=== PATIENT | male | born 1990 | race Caucasian/White ===

== ENCOUNTER 2019-10-13 19:18 | Inpatient (IN) | payer OTHER ==
--- NOTE | 2019-10-13 19:37 | ED ---
General Adult HPI - General Chief complaint: Psychiatric Symptoms Stated complaint: Mental Health Time Seen by Provider: 10/13/19 19:26 Source: patient, EMS Mode of arrival: EMS Limitations: no limitations - History of Present Illness Initial comments: Dictation was produced using [employer] dictation software. please excuse any grammatical, word or spelling errors. This patient was cared for during a federal and state declared state of emergency secondary to Covid 19 Chief Complaint: 29-year-old male brought in by EMS after being found wandering the [place]. History of Present Illness: 29-year-old male he says that he has a history of anxiety and depression. Patient was allegedly missing for approximately 2 days. He was found on someone's property near the [facility]. Allegedly there were people who were having target practice with there are firearms. Patient was found standing in front of the targets and encouraging people to shoot their guns saying that he "trusts them." Patient denies any medical history. Patient is a poor historian. He denies any homicidal or suicidal thoughts. He states that he was in the [facility] and oriented to "earn his wings for the ." As a psychiatric history. Does not take any medications. The ROS documented in this emergency department record has been reviewed and confirmed by me. Those systems with pertinent positive or negative responses have been documented in the HPI. All other systems are other negative and/or noncontributory. PHYSICAL EXAM: General Impression: Alert and oriented x3, not in acute distress, disheveled HEENT: Normocephalic atraumatic, extra-ocular movements intact, pupils equal and reactive to light bilaterally, mucous membranes moist. Cardiovascular: Heart regular rate and rhythm Chest: Able to complete full sentences, no retractions, no tachypnea Abdomen: abdomen soft, non-tender, non-distended, no organomegaly Musculoskeletal: Pulses present and equal in all extremities, no peripheral edema Motor: no focal deficits noted Neurological: CN II-XII grossly intact, no focal motor or sensory deficits noted Skin: Intact with no visualized rashes Psych: Paranoid, flat affect, avoids eye contact ED course: 29 yo Male presents with acute psychosis. Vital signs upon arrival are within acceptable limits. - Related Data Allergies Allergy/AdvReac Type Severity Reaction Status Date / Time clarithromycin [From Biaxin] AdvReac Rash/Hives Verified 10/13/19 23:09 loracarbef [From Lorabid] AdvReac Rash/Hives Verified 10/13/19 23:09 Review of Systems ROS Statement: Those systems with pertinent positive or pertinent negative responses have been documented in the HPI. ROS Other: All systems not noted in ROS Statement are negative. Past Medical History Past Medical History: No Reported History History of Any Multi-Drug Resistant Organisms: None Reported Additional Past Surgical History / Comment(s): hernia repair when he was 5 Past Psychological History: Depression Smoking Status: Never smoker Past Alcohol Use History: None Reported Past Drug Use History: None Reported - Past Family History family Family Medical History: Unable to Obtain General Exam Limitations: no limitations Course Vital Signs 10/13/19 19:23 Temperature 97 F L Pulse Rate 100 Respiratory 18 Rate Blood Pressure 152/74 O2 Sat by Pulse 98 Oximetry Medical Decision Making - Medical Decision Making EPS nurse requested computed tomography scan of the brain. Computed tomography scan was negative. Patient care was signed out to oncoming physician. Patient was evaluated by EPS recommended inpatient admission to mental health unit. - Lab Data Result diagrams: 10/14/19 08:40 10/14/19 08:40 Lab Results 10/13/19 Range/Units 19:40 Urine Opiates Screen Not Detected (NotDetected) Ur Oxycodone Screen Not Detected (NotDetected) Urine Methadone Screen Not Detected (NotDetected) Ur Propoxyphene Screen Not Detected (NotDetected) Ur Barbiturates Screen Not Detected (NotDetected) U Tricyclic Antidepress Not Detected (NotDetected) Ur Phencyclidine Scrn Not Detected (NotDetected) Ur Amphetamines Screen Not Detected (NotDetected) U Methamphetamines Scrn Not Detected (NotDetected) U Benzodiazepines Scrn Not Detected (NotDetected) Urine Cocaine Screen Not Detected (NotDetected) U Marijuana (THC) Screen Detected H (NotDetected) Disposition Clinical Impression: Acute psychosis Disposition: ADMITTED IP TO THIS HOSP Condition: Fair Decision Time: 07:18
[2019-10-13 20:20] LABS: Amphetamine Screen,Urine Not Detected (NotDetected); Barbiturate Screen,Urine Not Detected (NotDetected); Benzodiazepines Screen,Urine Not Detected (NotDetected); Cocaine Screen,Urine Not Detected (NotDetected); Methadone Screen, Urine Not Detected (NotDetected); Opiate Screen,Urine Not Detected (NotDetected); Oxycodone Screen, Urine Not Detected (NotDetected); Phencyclidine Screen,Urine Not Detected (NotDetected); Tricyclic Antidepressant,Urine Not Detected (NotDetected); Urn Cannabinoid Scrn Detected (NotDetected)
[2019-10-13] MEDS ORDERED: MAGNESIUM HYDROXIDE 2,400 MG/10 ML CUP PO PRN (22:04)
[2019-10-13] MEDS ORDERED: ACETAMINOPHEN TAB 325 MG TAB PO PRN (22:04)
[2019-10-13] MEDS ORDERED: MAG HYDROX/AL HYDROX/SIMETH 30 ML CUP PO PRN (22:04)
[2019-10-13] MEDS ORDERED: ZIPRASIDONE 20 MG VIAL IM PRN (22:04)
[2019-10-13] MEDS ORDERED: LORazepam 1 MG TAB PO PRN (22:04)
--- NOTE | 2019-10-13 22:04 | CT ---
EXAMINATION TYPE: CT brain wo con DATE OF EXAM: 10/13/2019 COMPARISON: None HISTORY: AMS CT DLP: 1058.4 mGycm Automated exposure control for dose reduction was used. Ventricles have normal size. There is no mass effect nor midline shift. There is no sign of intracran ial hemorrhage. The calvarium is intact. There is no evidence of cerebral edema. There is normal aera tion of the mastoid sinuses. Skull base is intact. IMPRESSION: Negative CT scan of the brain.
--- NOTE | 2019-10-14 00:04 | P.PN ---
Progress Note - Text Progress Note Date: 10/13/19 per RN , patient is not appropriate for evaluation at this time, he was given ativan to help him calm down and sleep
[2019-10-14 09:34] LABS: Basophils # (A) 0.1 k/uL (0-0.2); Basophils % (A) 1 %; Eosinophils # (A) 0.3 k/uL (0-0.7); Eosinophils % (A) 4 %; HGB 14.8 gm/dL (13.0-17.5); Lymphocytes # (A) 1.7 k/uL (1.0-4.8); Lymphocytes % (A) 20 %; MCH 30.1 pg (25.0-35.0); MCHC 32.9 g/dL (31.0-37.0); MCV 91.7 fL (80.0-100.0); Mean Platelet Volume 7.1; Monocytes # (A) 0.5 k/uL (0-1.0); Monocytes % (A) 6 %; Neutrophils # (A) 5.6 k/uL (1.3-7.7); Neutrophils % (A) 66 %; Platelet Count 214 k/uL (150-450); RBC 4.91 m/uL (4.30-5.90); RDW 13.2 % (11.5-15.5); WBC 8.4 k/uL (3.8-10.6)
[2019-10-14 10:02] LABS: ALT 51 U/L (4-49); AST 60 U/L (17-59); African American GFR (CKD) >90 (>60 ml/min/1.73 sqM); Albumin 4.5 g/dL (3.5-5.0); Alkaline Phosphatase 52 U/L (38-126); Anion Gap 11 mmol/L; Blood Urea Nitrogen 10 mg/dL (9-20); Calcium 9.2 mg/dL (8.4-10.2); Carbon Dioxide 25 mmol/L (22-30); Chloride 104 mmol/L (98-107); Cholesterol 162 mg/dL (<200); Glucose 112 mg/dL (74-99); HDL Cholesterol 48 mg/dL (40-60); LDL Cholesterol,Calculated 101 mg/dL (0-99); Non-African American GFR(CKD) >90 (>60 ml/min/1.73 sqM); Potassium 4.4 mmol/L (3.5-5.1); Sodium 140 mmol/L (137-145); Total Bilirubin 2.3 mg/dL (0.2-1.3); Total Protein 6.9 g/dL (6.3-8.2); Triglycerides 66 mg/dL (<150)
[2019-10-14] MEDS ORDERED: hydrOXYzine pamoate 25 MG CAP PO PRN (11:52)
--- NOTE | 2019-10-14 12:00 | P.HP ---
Psychiatric H&P - . H&P Date: 10/14/19 History & Physical: Allergies Allergy/AdvReac Type Severity Reaction Status Date / Time clarithromycin From Biaxin AdvReac Rash/Hives Verified 10/13/19 23:09 loracarbef From Lorabid AdvReac Rash/Hives Verified 10/13/19 23:09 Vital Signs Temp 97.4 F L 10/13/19 23:12 Pulse 75 10/13/19 23:12 Resp 18 10/13/19 23:12 BP 129/73 10/13/19 23:12 Pulse Ox 97 10/13/19 23:12 Intake & Output 10/13/19 10/14/19 10/14/19 18:59 06:59 18:59 Weight 77.3 kg Laboratory Last Values WBC 8.4 k/uL (3.8-10.6) 10/14/19 08:40 RBC 4.91 m/uL (4.30-5.90) 10/14/19 08:40 Hgb 14.8 gm/dL (13.0-17.5) 10/14/19 08:40 Hct 45.0 % (39.0-53.0) 10/14/19 08:40 MCV 91.7 fL (80.0-100.0) 10/14/19 08:40 MCH 30.1 pg (25.0-35.0) 10/14/19 08:40 MCHC 32.9 g/dL (31.0-37.0) 10/14/19 08:40 RDW 13.2 % (11.5-15.5) 10/14/19 08:40 Plt Count 214 k/uL (150-450) 10/14/19 08:40 Neutrophils % 66 % 10/14/19 08:40 Lymphocytes % 20 % 10/14/19 08:40 Monocytes % 6 % 10/14/19 08:40 Eosinophils % 4 % 10/14/19 08:40 Basophils % 1 % 10/14/19 08:40 Neutrophils # 5.6 k/uL (1.3-7.7) 10/14/19 08:40 Lymphocytes # 1.7 k/uL (1.0-4.8) 10/14/19 08:40 Monocytes # 0.5 k/uL (0-1.0) 10/14/19 08:40 Eosinophils # 0.3 k/uL (0-0.7) 10/14/19 08:40 Basophils # 0.1 k/uL (0-0.2) 10/14/19 08:40 Sodium 140 mmol/L (137-145) 10/14/19 08:40 Potassium 4.4 mmol/L (3.5-5.1) 10/14/19 08:40 Chloride 104 mmol/L (98-107) 10/14/19 08:40 Carbon Dioxide 25 mmol/L (22-30) 10/14/19 08:40 Anion Gap 11 mmol/L 10/14/19 08:40 BUN 10 mg/dL (9-20) 10/14/19 08:40 Creatinine 0.69 mg/dL (0.66-1.25) 10/14/19 08:40 Est GFR (CKD-EPI)AfAm >90 (>60 ml/min/1.73 sqM) 10/14/19 08:40 Est GFR (CKD-EPI)NonAf >90 (>60 ml/min/1.73 sqM) 10/14/19 08:40 Glucose 112 mg/dL (74-99) H 10/14/19 08:40 Calcium 9.2 mg/dL (8.4-10.2) 10/14/19 08:40 Total Bilirubin 2.3 mg/dL (0.2-1.3) H 10/14/19 08:40 AST 60 U/L (17-59) H 10/14/19 08:40 ALT 51 U/L (4-49) H 10/14/19 08:40 Alkaline Phosphatase 52 U/L (38-126) 10/14/19 08:40 Total Protein 6.9 g/dL (6.3-8.2) 10/14/19 08:40 Albumin 4.5 g/dL (3.5-5.0) 10/14/19 08:40 Triglycerides 66 mg/dL (<150) 10/14/19 08:40 Cholesterol 162 mg/dL (<200) 10/14/19 08:40 LDL Cholesterol, Calc 101 mg/dL (0-99) H 10/14/19 08:40 HDL Cholesterol 48 mg/dL (40-60) 10/14/19 08:40 TSH 0.541 mIU/L (0.465-4.680) 10/14/19 08:40 Urine Opiates Screen Not Detected (NotDetected) 10/13/19 19:40 Ur Oxycodone Screen Not Detected (NotDetected) 10/13/19 19:40 Urine Methadone Screen Not Detected (NotDetected) 10/13/19 19:40 Ur Propoxyphene Screen Not Detected (NotDetected) 10/13/19 19:40 Ur Barbiturates Screen Not Detected (NotDetected) 10/13/19 19:40 U Tricyclic Antidepress Not Detected (NotDetected) 10/13/19 19:40 Ur Phencyclidine Scrn Not Detected (NotDetected) 10/13/19 19:40 Ur Amphetamines Screen Not Detected (NotDetected) 10/13/19 19:40 U Methamphetamines Scrn Not Detected (NotDetected) 10/13/19 19:40 U Benzodiazepines Scrn Not Detected (NotDetected) 10/13/19 19:40 Urine Cocaine Screen Not Detected (NotDetected) 10/13/19 19:40 U Marijuana (THC) Screen Detected (NotDetected) H 10/13/19 19:40 10/14/19 11:39 IDENTIFYING DATA: Patient is a 29-year-old male who currently lives with his family has a history of depression, who currently lives with his family in a house is single as and 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 HPI: Patient presented to the hospital yesterday by EMS after being found in the [facility] after being reported missing for 2 days. Patient apparently came out of the [facility] when he heard gunshots during target practice and stood in front of targets that people were shooting at him. Patient reported that he was not on medications and was a poor historian in the ER. Patient's UDS is positive for THC. Patient appeared to have poor hygiene and grooming this morning however was directable and agreeable to streaked red in the office. Patient did appear to be glancing around the room and was suspicious/paranoid at times. He spoke about having racing thoughts and anxiety and was preoccupied with "overcoming my fears" and was tangential/circumstantial. He was also illogical at times and ramble. He states that he wants his thoughts to "slow down so I can rest". He states that this is been going on for over a year now. He states that he was walking in the [place] as he likes to meditate there and he claims that he was only away for 1 day and does not know why people think that it was 2 days. He states that he was walking and thought that "they were killing someone" when he heard the gunshots and went to go save them. He claims that they give him water and then called the ambulance. He claims his mood is "okay" and denied any depression at this time. He mentioned significant anxiety and states that he used to be on Ativan. He claims that he has not been taking medications regularly for over a year now. He states that his sleep is "off and on". Patient denies any suicidal or homicidal ideations intent or plan. At this time patient denies any auditory or visual hallucinations. Patient admits to using marijuana and does not use cigarettes or alcohol or any other recreational drugs. PAST PSYCHIATRIC HISTORY: Patient states that his history of depression and anxiety. Patient states that he used to be on Ativan and another medication which she cannot remember. Patient was previously hospitalized at [facility] one year ago. He states that he was speaking to a psychiatrist over the computer and states that this psychiatrist works at [employer]. Patient denies any history of suicide attempts in the past. PMH:denies ALLERGIES: as per EMR CHEMICAL DEPENDENCY HISTORY: as per HPI FAMILY PSYCHIATRIC/SUBSTANCE USE HISTORY: denies SOCIAL HISTORY: Patient was born and raised in [place] and was raised in [place]. 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 He states that he is single. Has no kids and lives with his family. He denied any snf or [facility] time. MENTAL STATUS EXAM: General Appearance: Patient appears to be stated age is alert, guarded/suspiciousness, directable, and attempts to cooperate. Patient appears to have poor hygiene and grooming. Behavior: Patient is seated without any agitated behavior. Guarded/suspiciousness. Speech: Patient's speech is fluent and nonpressured. Racing thoughts. Mood/Affect: Patient reports their mood is "fine", affect is congruent and constricted. Suicidality/Homicidality: Patient denies having any homicidal ideation intent or plan. Denies any suicidal ideations intent or plan Perceptions: Patient denies any visual hallucinations and denies any auditory hallucinations Though content/process: Tangential/circumstantial, illogical and rambles at ti mes. Memory and concentration: AOX3, grossly intact for the purposes of this session. Can spell "WORLD" backwards Judgment and insight: poor STRENGTHS/WEAKNESSES: strength is that patient is resilient. Weakness is that patient has poor judgment INTELLECT: average IMPRESSIONS: Psychosis unspecified, rule out secondary to cannabis use Cannabis use disorder PLAN: -Patient is admitted under voluntary status to MHU for stabilization of psychiatric symptoms and safety. Patient signed adult voluntary form and medication consent and is placed in patient's chart. -Medications : Will start patient on Abilify 5 mg daily for mood stabilization/psychosis. We'll also start patient on melatonin 5 mg daily at bedtime for sleep. Vistaril when necessary for anxiety. -Ativan and Geodon PRN for agitation/aggression -Patient was counselled on substance abuse and desired to cut back on use -Patient was informed of the risks, benefits and side effects of the medication and patient verbally consented to taking the medications. Patient signed med consent form and was placed in chart. -Internal Medicine consult to perform medical evaluation and physical. -NRT -not needed as patient does not smoke -SW on board for discharge planning. Encourage patient to participate in groups to work on coping skills. 10/14/19 11:53
[2019-10-14] MEDS: ARIPiprazole 5 MG TAB PO SCH (14:09)
[2019-10-14 18:29] LABS: Hemoglobin A1C 4.8 % (4.0-6.0)
[2019-10-14] MEDS: MELATONIN 5 MG TABLET PO SCH (20:23)
[2019-10-15] MEDS: ARIPiprazole 5 MG TAB PO SCH (08:16)
--- NOTE | 2019-10-15 10:15 | P.PN ---
Progress Note - Text Progress Note Date: 10/15/19 Interval History: Patient was seen sitting in on group this morning and was directable and agree able to speak with proposal writer in the office. Patient appeared to have an improvement in his hygiene and grooming and states that he showered yesterday. He appears to be mildly more appropriate with his answers and continues to speak vaguely about the circumstances that brought him in to the hospital. He continues to minimize his symptoms and states that "nobody really understands me in my house and they're all against me". Patient was fairly grandiose today and at times illogical. He claims that his mood was "okay" today and denying depression. He states that he will be talking to his family today over the phone and was agreeable to have a family meeting with the proposal writer in the near future. He claims that he has been taking his medications as prescribed and states that he was able to sleep well last night. He claims that he has a fair appetite however this morning only ate part of his breakfast. At this time patient denies any suicidal or homical ideations, intent or plan. Patient denies any auditory, visual hallucinations. Patient denies any side effects from the medications and has been compliant with meds. Mental Status Exam: General Appearance: Patient appears to be stated age is alert, less guarded/suspiciousness today, and more directable. Patient appears to have improving hygiene and grooming. Behavior: Patient is seated without any agitated behavior. less Guarded/ suspiciousness. Speech: Patient's speech is fluent and nonpressured. Grandiose at times. Mood/Affect: Patient reports their mood is "ok", affect is congruent and constricted. Suicidality/Homicidality: Patient denies having any homicidal ideation intent or plan. Denies any suicidal ideations intent or plan Perceptions: Patient denies any visual hallucinations and denies any auditory hallucinations Though content/process: Tangential/circumstantial, illogical and rambles at times, this is improving mildly. Patient was grandiose. Memory and concentration: AOX3, grossly intact for the purposes of this session. Judgment and insight: poor, improving mildly Assessment Psychosis unspecified, rule out secondary to cannabis use Cannabis use disorder Plan: -Patient continues to meet criteria for inpatient psychiatric admission for symptom stabilization and safety. Patient has signed [adult voluntary form and] medication consent and was placed in patient's chart. -Medications: Increased Abilify to 7.5 mg daily for mood stabilization/psychosis, continue with melatonin 5 mg nightly for sleep. Vistaril when necessary for anxiety. -When necessary Ativan and Geodon for agitation/aggression. -NRT -not needed as patient does not smoke. -SW on board for discharge planning. Encouraged the patient to participate in milieu. Patient was encouraged to speak with his family over the phone today and will attempt to arrange a family meeting over the phone in the next 1-2 days.
[2019-10-15] MEDS: MELATONIN 5 MG TABLET PO SCH (21:12)
--- NOTE | 2019-10-16 00:31 | P.MDCNMH ---
History of Present Illness H&P Date: 10/13/19 Chief Complaint: Depression 29-year-old male no significant past medical history except for depression From reviewing medical records seems like patient has been brought to the hospital due to abnormal behavior he was found in the [place] at a stranger's property after being missing for 2 days. At that the private property owners were doing target practice and the patient had heme out of the [place] and stood in front of the targets asking the people to shoot him. Otherwise I could not evaluate the patient at this time as patient declined and preferred sleep he was medicated earlier Review of Systems ROS unobtainable: due to mental status Past Medical History Past Medical History: No Reported History, Unable to Obtain History of Any Multi-Drug Resistant Organisms: None Reported Additional Past Surgical History / Comment(s): hernia repair when he was 5 Past Psychological History: Depression Smoking Status: Never smoker Past Alcohol Use History: None Reported Past Drug Use History: None Reported - Past Family History family Family Medical History: Unable to Obtain Medications and Allergies Allergies Allergy/AdvReac Type Severity Reaction Status Date / Time clarithromycin [From Biaxin] AdvReac Rash/Hives Verified 10/13/19 23:09 loracarbef [From Lorabid] AdvReac Rash/Hives Verified 10/13/19 23:09 Physical Exam Vitals: Vital Signs Temp Pulse Pulse Resp BP BP Pulse Ox 10/13/19 23:12 97.4 F L 75 18 129/73 97 10/13/19 19:23 97 F L 100 18 152/74 98 Intake and Output 10/13/19 10/13/19 10/14/19 14:59 22:59 06:59 Other: Weight 72.575 kg 77.3 kg Deferred this patient declined to be evaluated Cranial Nerve Examination - Cranial Nerves Cranial Nerve II- Optic: Intact Cranial Nerve III- Oculomotor: Intact Cranial Nerve IV- Trochlear: Intact Cranial Nerve V- Trigeminal: Intact Cranial Nerve - Abducens: Intact Cranial Nerve VII- Facial: Intact Cranial Nerve VIII- Auditory: Intact Cranial Nerve IX- Glossopharyngeal: Intact Cranial Nerve X- Vagus: Intact Cranial Nerve XI- Accessory: Intact Cranial Nerve XII- Hypoglossal: Intact Results CBC & Chem 7: 10/14/19 08:40 10/14/19 08:40 Labs: Abnormal Lab Results - Last 24 Hours (Table) 10/13/19 Range/Units 19:40 U Marijuana (THC) Screen Detected H (NotDetected) Assessment and Plan Assessment: Suicidal ideation Depression Abnormal behavior Management per psych Suicide precautions Patient declined to be evaluated at this time she was sleeping and medicated Please contact [facility] for any medical concerns Thank you for allowing us to participate in the care of this patient. We will follow peripherally. Do not hesitate to contact us with questions. Someone can be reached from the [facility] hospitalist group at all hours of the day at [phone].
[2019-10-16] MEDS ORDERED: ARIPiprazole 5 MG TAB PO SCH (09:00)
--- NOTE | 2019-10-16 10:20 | P.PN ---
Progress Note - Text Progress Note Date: 10/16/19 Interval History: Patient was seen sitting in on group this morning and was directable and agree able to speak with casualty underwriter in the office. Patient appeared to have an improvement in his hygiene and grooming again today. He states that he's been showering daily. Patient appeared to have clearer thoughts today and was more organized however at times was rambling and illogical. He appears to have mild improvement in his judgment and reflected back on what had occurred and that he should've "left a note that I was going into the [place] for a walk so my parents could see". He claims that he has been taking the medications and believes it is helping with his racing thoughts. He claims that his mood was "okay" today and denying depression. He states that he will continue to be talking with his family over the phone. Communications Professor spoke with patient about compliance of medications and option for long-acting injection and patient opted to take the long-acting injection tomorrow. He claims that he has been taking his medications as prescribed and states that he was able to sleep well last night. He claims that he has a fair appetite however this morning only ate part of his breakfast. At this time patient denies any suicidal or homical ideations, intent or plan. Patient denies any auditory, visual hallucinations. Patient denies any side effects from the medications and has been compliant with meds. Mental Status Exam: General Appearance: Patient appears to be stated age is alert, less guarded/suspiciousness today, and more directable. Patient appears to have improving hygiene and grooming. Behavior: Patient is seated without any agitated behavior. More directable today. Speech: Patient's speech is fluent and nonpressured. Grandiose at times. Mood/Affect: Patient reports their mood is "good", affect is congruent Suicidality/Homicidality: Patient denies having any homicidal ideation intent or plan. Denies any suicidal ideations intent or plan Perceptions: Patient denies any visual hallucinations and denies any auditory hallucinations Though content/process: Tangential/circumstantial, illogical and rambles at times, this is improving. Patient was less grandiose. Memory and concentration: AOX3, grossly intact for the purposes of this session. Judgment and insight: poor, improving mildly Assessment Psychosis unspecified, rule out secondary to cannabis use Cannabis use disorder Plan: -Patient continues to meet criteria for inpatient psychiatric admission for symptom stabilization and safety. Patient has signed [adult voluntary form and] medication consent and was placed in patient's chart. -Medications: Increased Abilify to 10 mg daily for mood stabilization/psychosis, continue with melatonin 5 mg nightly for sleep. Vistaril when necessary for anxiety. -When necessary Ativan and Geodon for agitation/aggression. -NRT -not needed as patient does not smoke. -SW on board for discharge planning. Encouraged the patient to participate in milieu. Patient was encouraged to speak with his family over the phone. Communications Professor attempted to have a family meeting with patient's mother over the phone today however she did not answer, left a voicemail. Patient will likely get the long- acting injection tomorrow and possible discharge in 1-2 days.
[2019-10-16] MEDS: MELATONIN 5 MG TABLET PO SCH (22:07)
[2019-10-17 06:40] VITALS: BP 134/67; PULSE 88; RESP 18; TEMP 97.8
[2019-10-17] MEDS ORDERED: ARIPiprazole 10 MG TAB PO SCH (09:00)
[2019-10-17] MEDS ORDERED: ARIPiprazole IM 400 MG VIAL (NO COST) IM ONE (09:11)
[2019-10-17] MEDS ORDERED: ARIPiprazole IM SYRINGE 400 MG (NO CHARGE) IM ONE (09:15)
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
== END 2019-10-17 16:05 | disposition home or self-care (01) | DRG 885 ==
LOC: EC 19:18 → 3MHU 22:00
PROVIDERS: ADMIT Psychiatry & Neurology Psychiatry; ATTEND Psychiatry & Neurology Psychiatry
DX: F29 Unspecified psychosis not due to a substance or known physiological condition (principal); R45.851 Suicidal ideations; F12.90 Cannabis use, unspecified, uncomplicated; F41.9 Anxiety disorder, unspecified; F32.9 Major depressive disorder, single episode, unspecified; Z91.14 Patient's other noncompliance with medication regimen; Z88.1 Allergy status to other antibiotic agents; Z88.8 Allergy status to other drugs, medicaments and biological substances
CPT/HCPCS: 70450; 80053; 80061; 80306; 82075; 83036; 84443; 85025; 99285